=== PATIENT | male | born 1980 | race American Indian/Alaskan Native ===

== ENCOUNTER 2021-01-08 14:18 | Emergency (ER) | payer SELFPAY ==
--- NOTE | 2021-01-08 14:36 | Emergency Department Report ---
- General Chief complaint: Skin/Abscess/Foreign Body Stated complaint: GROIN PAIN Time Seen by Provider: 01/08/21 14:24 Source: patient Mode of arrival: Ambulatory Limitations: No Limitations - History of Present Illness Initial comments: Patient is a 39-year-old male who presents emergency room complaints of a possible abscess. He states approximately a week ago he noticed a small hair bump present to the right groin, he states over the last couple days it has grown larger and become more painful. Patient states that also for over a week he has had pain and swelling to the gluteal region and had a small amount of drainage which resolved. He denies any fever, vomiting, rectal pain, testicular pain. Patient has a past medical history of a scrotal abscess. No allergies to medications. - Related Data Previous Rx's Medication Instructions Recorded Last Taken Type Acetaminophen/Codeine [Tylenol 1 tab PO Q6H PRN #10 tab 01/08/21 Unknown Rx /Codeine # 3 tab] Clindamycin [Clindamycin CAP] 450 mg PO TID 7 Days #63 capsule 01/08/21 Unknown Rx Sulfamethoxazole/Trimethoprim 1 each PO BID 7 Days #14 tablet 01/08/21 Unknown Rx [Bactrim DS TAB] Allergies Allergy/AdvReac Type Severity Reaction Status Date / Time No Known Allergies Allergy Unverified 01/08/21 14:20 Abscess Boil HPI - HPI Chief Complaint: Skin/Abscess/Foreign Body Stated Complaint: GROIN PAIN Time Seen by Provider: 01/08/21 14:24 Home Medications: Previous Rx's Medication Instructions Recorded Last Taken Type Acetaminophen/Codeine [Tylenol 1 tab PO Q6H PRN #10 tab 01/08/21 Unknown Rx /Codeine # 3 tab] Clindamycin [Clindamycin CAP] 450 mg PO TID 7 Days #63 capsule 01/08/21 Unknown Rx Sulfamethoxazole/Trimethoprim 1 each PO BID 7 Days #14 tablet 01/08/21 Unknown Rx [Bactrim DS TAB] Allergies/Adverse Reactions: Allergies Allergy/AdvReac Type Severity Reaction Status Date / Time No Known Allergies Allergy Unverified 01/08/21 14:20 ED Review of Systems ROS: Stated complaint: GROIN PAIN Other details as noted in HPI Comment: All other systems reviewed and negative ED Past Medical Hx - Past Medical History Previous Medical History?: No - Surgical History Additional Surgical History: I &D - Medications Home Medications: Home Medications Medication Instructions Recorded Confirmed Last Taken Type Acetaminophen/Codeine [Tylenol 1 tab PO Q6H PRN #10 tab 01/08/21 Unknown Rx /Codeine # 3 tab] Clindamycin [Clindamycin CAP] 450 mg PO TID 7 Days #63 capsule 01/08/21 Unknown Rx Sulfamethoxazole/Trimethoprim 1 each PO BID 7 Days #14 tablet 01/08/21 Unknown Rx [Bactrim DS TAB] ED Physical Exam - General Limitations: No Limitations General appearance: alert, in no apparent distress - Head Head exam: Present: atraumatic, normocephalic - Eye Eye exam: Present: normal appearance - ENT ENT exam: Present: mucous membranes moist - Neurological Exam Neurological exam: Present: alert, oriented X3 - Psychiatric Psychiatric exam: Present: normal affect, normal mood - Skin Skin exam: Present: warm, dry, other (2 cm area of induration present to the gluteal cleft, it appears dried up with dry skin, no flutuance, no drainage, no necrosis, no crepitus, 2 cm area of induration present to the right groin, no scrotal invovlement, no testicular involvement, no perineum involvement, no fluctuance, no crepitus) - Other 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 He states approximately a week ago he noticed a small hair bump present to the right groin, he states over the last couple days it has grown larger and become more painful. Patient states that also for over a week he has had pain and swelling to the gluteal region and had a small amount of drainage which resolved. He denies any fever, vomiting, rectal pain, testicular pain. Patient has a past medical history of a scrotal abscess. No allergies to medications. Initial vitals are stable. On exam:2 cm area of induration present to the gluteal cleft, it appears dried up with dry skin, no flutuance, no drainage, no necrosis, no crepitus, 2 cm area of induration present to the right groin, no scrotal invovlement, no testicular involvement, no perineum involvement, no fluctuance, no crepitus. Examination appears consistent with cellulitis. Also appears to have improving pilonidal cyst. There is no drainable abscess at this time. No clinical signs of necrotizing fasciitis. There is no scrotal or perineum involvement at this time to suggest Breanna's gangrene. Patient given prescription for medications. Discussed the importance of reexamination within the next 3 days. pt referred to his primary care doctor and a general surgeon. Discussed very strict return precautions in detail with patient. Advised patient Please take medication as prescribed. Please do warm compresses 3 times a day. May soak in Epson salt. Follow-up with a general surgeon. Follow-up with your primary care doctor. You need to have area reexamined in the next 3 days. Return to the emergency room immediately for any new or worsening symptoms including but not limited to worsening swelling, worsening pain, fever, vomiting, significant drainage, etc. Critical care attestation.: If time is entered above; I have spent that time in minutes in the direct care of this critically ill patient, excluding procedure time. ED Disposition Clinical Impression: Cellulitis of groin, Cellulitis of buttock Disposition: 01 HOME / SELF CARE / HOMELESS Is pt being admited?: No Does the pt Need Aspirin: No Condition: Stable Instructions: Cellulitis, Adult Additional Instructions: Please take medication as prescribed. Please do warm compresses 3 times a day. May soak in Epson salt. Follow-up with a general surgeon. Follow-up with your primary care doctor. You need to have area reexamined in the next 3 days. Return to the emergency room immediately for any new or worsening symptoms including but not limited to worsening swelling, worsening pain, fever, vomiting, significant drainage, etc. Prescriptions: Sulfamethoxazole/Trimethoprim [Bactrim DS TAB] 1 each PO BID 7 Days #14 tablet Clindamycin [Clindamycin CAP] 450 mg PO TID 7 Days #63 capsule Acetaminophen/Codeine [Tylenol /Codeine # 3 tab] 1 tab PO Q6H PRN #10 tab PRN Reason: severe pain Referrals: KAY,ANNA D, MD [Staff Physician] - 2-3 Days your, primary care doctor [Other] - 2-3 Days Time of Disposition: 14:34 Print Language: HEBREW
[2021-01-08 15:06] VITALS: BP 126/81
== END 2021-01-08 15:07 | disposition home or self-care (01) ==
LOC: ED 14:18
DX: L03.314 Cellulitis of groin (principal); L03.317 Cellulitis of buttock
CPT/HCPCS: 99281

== ENCOUNTER 2021-08-05 10:39 | Emergency (ER) | payer SELFPAY ==
--- NOTE | 2021-08-05 11:52 | XRay Report ---
CHEST 2 VIEWS INDICATION / CLINICAL INFORMATION: back and side pain. COMPARISON: None available. FINDINGS: SUPPORT DEVICES: None. HEART / MEDIASTINUM: No significant abnormality. LUNGS / PLEURA: No significant pulmonary or pleural abnormality. No pneumothorax. ADDITIONAL FINDINGS: No significant additional findings. IMPRESSION: 1. No acute findings. Signer Name: Anthony Emery MD Signed: 08/05/2021 11:48 AM Workstation Name: [id number]
[2021-08-05] MEDS ORDERED: CYCLOBENZAPRINE 10 MG TAB PO ONE (15:59)
[2021-08-05] MEDS ORDERED: KETOROLAC 10 MG TAB PO ONE (15:59)
--- NOTE | 2021-08-05 16:41 | Cat Scan Report ---
CT ABDOMEN AND PELVIS WITHOUT CONTRAST INDICATION / CLINICAL INFORMATION: Back pain. Bilateral flank pain. TECHNIQUE: Axial CT images were obtained through the abdomen and pelvis without IV contrast. All CT scans at [facility] location are performed using CT dose reduction for ALARA by means of automated exposure control. COMPARISON: None available. FINDINGS: LOWER CHEST: No significant abnormality. LIVER: No significant abnormality. GALLBLADDER: No significant abnormality. BILE DUCTS: No significant abnormality. PANCREAS: No significant abnormality. SPLEEN: No significant abnormality. ADRENALS: No significant abnormality. RIGHT KIDNEY/URETER: A probable cyst is seen anteriorly along the upper pole of the right kidney priyanka uring 5.3 x 3.9 cm on image 77 of series 2. No other significant abnormality. LEFT KIDNEY/URETER: No significant abnormality. STOMACH/SMALL BOWEL: No significant abnormality. COLON: No significant abnormality. APPENDIX: No significant abnormality. PERITONEUM: No free fluid. No free air. No fluid collection. LYMPH NODES: No significant adenopathy. VASCULATURE: There is mild generalized atherosclerosis. No other significant abnormality. URINARY BLADDER: No significant abnormality. REPRODUCTIVE ORGANS: No significant abnormality. ADDITIONAL FINDINGS: None. BONES: No significant abnormality IMPRESSION: 1. No acute findings to explain the patient's pain. 2. Additional findings as above. Signer Name: Navarro Valladares MD Signed: 08/05/2021 4:37 PM Workstation Name: [email or web address]
--- NOTE | 2021-08-05 16:51 | Emergency Department Report ---
ED Abdominal Pain HPI - General Chief Complaint: Back Pain/Injury Stated Complaint: CHEST/BACK PAIN Time Seen by Provider: 08/05/21 15:47 Source: patient Mode of arrival: Ambulatory Limitations: No Limitations - History of Present Illness Initial Comments: 40-year-old black male with past medical history of diabetes and hypertension presents emergency department for evaluation of 4-month history of right rib and right upper quadrant pain. He denies any injury or trauma but states that he has this pain intermittently that comes out of nowhere. He denies fever, nausea, vomiting, diarrhea and dysuria. He states that pain is worse with palpation and at its worst is 9 on a 10 point scale. Complaint: abdominal pain -: Gradual, month(s) (5) Location: RUQ, R flank (Right rib area) Radiation: back Migration to: no migration Severity scale (0 -10): 9 Quality: aching Consistency: intermittent Worsens With: other (Palpation) Associated Symptoms: denies: nausea, vomiting, diarrhea, fever, chills, dysuria, hematemesis, hematochezia, melena, anorexia, syncope - Related Data Previous Rx's Medication Instructions Recorded Last Taken Type Acetaminophen/Codeine [Tylenol 1 tab PO Q6H PRN #10 tab 01/08/21 Unknown Rx /Codeine # 3 tab] Clindamycin [Clindamycin CAP] 450 mg PO TID 7 Days #63 capsule 01/08/21 Unknown Rx Sulfamethoxazole/Trimethoprim 1 each PO BID 7 Days #14 tablet 01/08/21 Unknown Rx [Bactrim DS TAB] Cyclobenzaprine [Flexeril] 10 mg PO TID PRN #30 tab 08/05/21 Unknown Rx Naproxen [Naprosyn] 500 mg PO BID #14 tab 08/05/21 Unknown Rx Allergies Allergy/AdvReac Type Severity Reaction Status Date / Time No Known Allergies Allergy Unverified 01/08/21 14:20 ED Review of Systems ROS: Stated complaint: CHEST/BACK PAIN Other details as noted in HPI Comment: All other systems reviewed and negative Constitutional: denies: chills, fever ENT: denies: congestion Respiratory: denies: cough, shortness of breath, SOB with exertion, SOB at rest, wheezing Cardiovascular: denies: chest pain, palpitations Gastrointestinal: abdominal pain. denies: nausea, vomiting, diarrhea, hematemesis, melena, hematochezia Genitourinary: denies: urgency, dysuria, frequency, hematuria, discharge, testicular pain Musculoskeletal: back pain Skin: denies: rash Neurological: denies: headache, weakness, numbness, paresthesias, confusion, abnormal gait ED Past Medical Hx - Past Medical History Previous Medical History?: No - Surgical History Past Surgical History?: Yes Additional Surgical History: I &D - Medications Home Medications: Home Medications Medication Instructions Recorded Confirmed Last Taken Type Acetaminophen/Codeine [Tylenol 1 tab PO Q6H PRN #10 tab 01/08/21 Unknown Rx /Codeine # 3 tab] Clindamycin [Clindamycin CAP] 450 mg PO TID 7 Days #63 capsule 01/08/21 Unknown Rx Sulfamethoxazole/Trimethoprim 1 each PO BID 7 Days #14 tablet 01/08/21 Unknown Rx [Bactrim DS TAB] Cyclobenzaprine [Flexeril] 10 mg PO TID PRN #30 tab 08/05/21 Unknown Rx Naproxen [Naprosyn] 500 mg PO BID #14 tab 08/05/21 Unknown Rx ED Physical Exam - General Limitations: No Limitations General appearance: alert, in no apparent distress - Head Head exam: Present: atraumatic, normocephalic - Eye Eye exam: Present: normal appearance. Absent: conjunctival injection - Neck Neck exam: Present: normal inspection, full ROM. Absent: tenderness, lymphadenopathy - Respiratory Respiratory exam: Present: normal lung sounds bilaterally, chest wall tenderness. Absent: respiratory distress, wheezes, rales, rhonchi, stridor - Cardiovascular Cardiovascular Exam: Present: regular rate, normal heart sounds - Expanded Cardiovascular Exam Expanded 1 - Tenderness - GI/Abdominal GI/Abdominal exam: Present: soft, tenderness (Right upper quadrant), normal bowel sounds. Absent: distended, guarding, rebound, rigid - Extremities Exam Extremities exam: Present: normal inspection, normal capillary refill. Absent: tenderness, pedal edema, joint swelling, calf tenderness - Back Exam Back exam: Present: normal inspection. Absent: CVA tenderness (R), CVA tenderness (L), paraspinal tenderness, vertebral tenderness - Neurological Exam Neurological exam: Present: alert, oriented X3, normal gait - Psychiatric Psychiatric exam: Present: normal affect, normal mood - Skin Skin exam: Present: warm, dry, intact, normal color ED Course Vital Signs 08/05/21 08/05/21 08/05/21 11:26 16:03 17:43 Temperature 98.2 F 98.3 F Pulse Rate 89 82 Respiratory 16 18 16 Rate Blood Pressure 193/112 135/72 [Left] O2 Sat by Pulse 99 98 Oximetry ED Medical Decision Making - Radiology Data Radiology results: report reviewed, image reviewed Chest x-ray: FINDINGS: SUPPORT DEVICES: None. HEART / MEDIASTINUM: No significant abnormality. LUNGS / PLEURA: No significant pulmonary or pleural abnormality. No pneumothorax. ADDITIONAL FINDINGS: No significant additional findings. IMPRESSION: 1. No acute findings. CT abdomen and pelvis without contrast: FINDINGS: LOWER CHEST: No significant abnormality. LIVER: No significant abnormality. GALLBLADDER: No significant abnormality. BILE DUCTS: No significant abnormality. PANCREAS: No significant abnormality. SPLEEN: No significant abnormality. ADRENALS: No significant abnormality. RIGHT KIDNEY/URETER: A probable cyst is seen anteriorly along the upper pole of the right kidney measuring 5.3 x 3.9 cm on image 77 of series 2. No other significant abnormality. LEFT KIDNEY/URETER: No significant abnormality. STOMACH/SMALL BOWEL: No significant abnormality. COLON: No significant abnormality. APPENDIX: No significant abnormality. PERITONEUM: No free fluid. No free air. No fluid collection. LYMPH NODES: No significant adenopathy. VASCULATURE: There is mild generalized atherosclerosis. No other significant abnormality. URINARY BLADDER: No significant abnormality. REPRODUCTIVE ORGANS: No significant abnormality. ADDITIONAL FINDINGS: None. BONES: No significant abnormality IMPRESSION: 1. No acute findings to explain the patient's pain. 2. Additional findings as above. - Medical Decision Making 40-year-old black male with past medical history of diabetes and hypertension presents emergency department for evaluation of 4-month history of right rib and right upper quadrant pain. He denies any injury or trauma but states that he has this pain intermittently that comes out of nowhere. He denies fever, nausea, vomiting, diarrhea and dysuria. He states that pain is worse with palpation and at its worst is 9 on a 10 point scale. No gross abnormalities noted on exam. Patient noted to have some tenderness to right rib area to palpation on exam. Chest x-ray without any acute abnormalities noted, and CT abdomen and pelvis without any acute abnormalities noted. Pain was mostly resolved after medication: Therefore patient will be treated for musculoskeletal rib pain. He will be discharged home with Flexeril and naproxen to use as needed for pain. He is advised to take medications as prescribed and follow-up with his primary care provider if no improvement or worsening symptoms. He verbalizes understanding of and agreement with plan of care. Critical care attestation.: If time is entered above; I have spent that time in minutes in the direct care of this critically ill patient, excluding procedure time. ED Disposition Clinical Impression: Rib pain on right side Disposition: HOME / SELF CARE / HOMELESS Is pt being admited?: No Does the pt Need Aspirin: No Condition: Stable Instructions: Costochondritis, [id number], Chest Wall Pain, [id number] Additional Instructions: Take medications as prescribed. Follow-up with primary care provider if worsening symptoms. Return to the emergency department as needed. Prescriptions: Cyclobenzaprine [Flexeril] 10 mg PO TID PRN #30 tab PRN Reason: Muscle Spasm Naproxen [Naprosyn] 500 mg PO BID #14 tab Referrals: PAUL COOK MD [Staff Physician] - 3-5 Days Time of Disposition: 16:50
[2021-08-05 17:44] VITALS: BP 135/72
== END 2021-08-05 17:44 | disposition home or self-care (01) ==
LOC: ED 10:39
DX: R07.81 Pleurodynia (principal); Z79.899 Other long term (current) drug therapy
CPT/HCPCS: 71046; 74176; 99284